=== PATIENT | male | born 1970 | race Caucasian/White ===

== ENCOUNTER 2024-03-06 15:39 | Emergency (ER) | payer OTHER ==
[2024-03-06] MEDS: Doxycycline 100 MG Cap PO ONE (16:23)
== END 2024-03-06 16:26 | disposition home or self-care (01) ==
LOC: JP.ED 15:39
DX: S30.860A Insect bite (nonvenomous) of lower back and pelvis, initial encounter (principal); I10 Essential (primary) hypertension; E78.00 Pure hypercholesterolemia, unspecified; Z79.899 Other long term (current) drug therapy; W57.XXXA Bitten or stung by nonvenomous insect and other nonvenomous arthropods, initial encounter; Z29.9 Encounter for prophylactic measures, unspecified
CPT/HCPCS: 99281; 99283; A9270

== ENCOUNTER 2024-08-05 06:49 | Day surgery (SDC) | payer OTHER ==
[2024-08-05] MEDS ORDERED: Midazolam 1 MG/ML 2 ML SDV ONE (07:17)
[2024-08-05] MEDS ORDERED: fentaNYL 100 MCG/2 ML SDV ONE (07:17)
[2024-08-05] MEDS ORDERED: Propofol 200 MG/20 ML SDV ONE (07:17)
[2024-08-05] MEDS: Lactated Ringers 1,000 ML IV SCH (07:35)
== END 2024-08-05 09:50 | disposition home or self-care (01) ==
LOC: JP.SDS 06:49
PROVIDERS: ATTEND Family Medicine
DX: Z12.11 Encounter for screening for malignant neoplasm of colon (principal); D12.3 Benign neoplasm of transverse colon; D12.4 Benign neoplasm of descending colon; D12.5 Benign neoplasm of sigmoid colon; Z86.0101 Personal history of adenomatous and serrated colon polyps; I10 Essential (primary) hypertension; E78.5 Hyperlipidemia, unspecified
CPT/HCPCS: 45380; 88305; J2250; J2704; J3010; J7120; 00811-QZ